=== PATIENT | female | born 1995 | race Caucasian/White ===

== ENCOUNTER 2021-02-20 14:07 | Emergency (ER) | payer OTHER ==
[~2021-02-20] VITALS: Ht 162.6 cm; Wt 99.5 kg
[2021-02-20 14:37] VITALS: Ht 162.6 cm; Wt 99.5 kg
[2021-02-20] MEDS ORDERED: ZOFRAN4 MG (14:40)
[2021-02-20 15:30] LABS: BASOPHILS 0.2 % (0-2); EOSINOPHILS 0.3 % (0-7); HEMATOCRIT 38.1 % (36.0-48.0); HEMOGLOBIN 12.8 g/dL (12-16); LYMPHOCYTES 15.1 % (15-50); MCH 27.9 pg (26.0-34.0); MCHC 33.7 g/dL (31.0-37.0); MCV 82.7 fL (80.0-100.0); MEAN PLATELET VOLUME 8.4 fL (7.4-10.4); MONOCYTES 7.5 % (2-11); NEUTROPHILS 76.9 % (40-80); PLATELET COUNT 269 10x3/uL (130-400); RBC 4.61 10x6/uL (4.00-5.40); RDW 14.3 % (11.5-14.5); WBC 10.9 10x3/uL (4.8-10.8)
[2021-02-20 15:33] LABS: CALC OSMOLALITY 272 mosm/kg (275-300); CALCIUM 9.4 mg/dL (8.5-10.1); CARBON DIOXIDE 24.5 mmol/L (21.0-32.0); CHLORIDE - SERUM 102 mmol/L (98-107); CREATININE - SERUM 0.7 mg/dL (0.6-1.3); GLUCOSE 100 mg/dL (74-106); POTASSIUM - SERUM 3.3 mmol/L (3.5-5.1); SODIUM 138 mmol/L (136-145); UREA NITROGEN 4 mg/dL (7-18); eGFR NON AFRICAN AMERICAN > 90 mL/min (90-120)
[2021-02-20 15:43] LABS: ALBUMIN 3.1 g/dL (3.4-5.0); ALKALINE PHOSPHATASE 68 U/L (30-120); ALT (SGPT) 34 U/L (10-68); BILIRUBIN - TOTAL 0.42 mg/dL (0.2-1.3); PROTEIN - SERUM 7.4 g/dL (6.4-8.2)
[2021-02-20] MEDS ORDERED: PHENERGAN25 M1 PO (19:24)
[2021-02-20 20:15] LABS: THYROID STIMULATING HORMONE 1.29 uIU/mL (0.36-3.74)
[2021-02-20 21:53] VITALS: BP 125/82
== END 2021-02-20 21:54 | disposition home or self-care (01) ==
LOC: D.ER 14:07
PROVIDERS: Family Medicine
DX: O26.892 Other specified pregnancy related conditions, second trimester (principal); R11.2 Nausea with vomiting, unspecified